=== PATIENT | female | born 1985 | race Caucasian/White ===

== ENCOUNTER 2017-05-21 10:08 | Emergency (ER) | payer MEDICAID ==
[~2017-05-21] VITALS: Ht 160 cm; Wt 87.0 kg
[2017-05-21 10:14] VITALS: Ht 160 cm; Wt 87.0 kg
[2017-05-21 11:18] LABS: BASOPHIL # 0.1 10^3/ul (0.0-0.1); BASOPHILS % 0.7 % (0.0-2.0); EOSINOPHILS # 0.3 10^3/ul (0.0-0.5); EOSINOPHILS % 2.6 % (0.0-7.0); HEMATOCRIT 38.9 % (37.0-47.0); HEMOGLOBIN 12.8 g/dl (12.0-16.0); LYMPHOCYTES # 3.1 10^3/ul (0.8-2.9); LYMPHOCYTES % 32.3 % (15.0-51.0); MEAN CORPUSCULAR HEMOGLOBIN 27.1 pg (29.0-33.0); MEAN CORPUSCULAR HGB CONC 32.9 g/dl (32.0-37.0); MEAN CORPUSCULAR VOLUME 82.4 fl (82.0-101.0); MEAN PLATELET VOLUME 11.4 fl (7.4-10.4); MONOCYTE # 0.5 10^3/ul (0.3-0.9); MONOCYTES % 5.2 % (0.0-11.0); NEUTROPHIL # 5.6 10^3/ul (1.6-7.5); NEUTROPHILS % 58.4 % (39.0-77.0); PLATELET COUNT 279 10^3/UL (140-415); RED BLOOD COUNT 4.72 10^6/ul (4.20-5.40); RED CELL DISTRIBUTION WIDTH 14.7 % (11.5-14.5); WHITE BLOOD COUNT 9.6 10^3/ul (4.8-10.8)
[2017-05-21 11:25] LABS: ADD UMIC NO; UR ASCORBIC ACID NEGATIVE (NEGATIVE); UR BILIRUBIN (Dip) NEGATIVE (NEGATIVE); UR BLOOD (Dip) NEGATIVE (NEGATIVE); UR CLARITY CLEAR (CLEAR); UR COLOR COLORLESS (YELLOW); UR GLUCOSE (Dip) NEGATIVE (NEGATIVE); UR KETONES (Dip) NEGATIVE (NEGATIVE); UR LEUKOCYTE ESTERASE (Dip) NEGATIVE Leu/ul (NEGATIVE); UR NITRITE (Dip) NEGATIVE (NEGATIVE); UR SPECIFIC GRAVITY (Dip) 1.002 (1.003-1.030); UR TOTAL PROTEIN (Dip) NEGATIVE (NEGATIVE); UR UROBILINOGEN (Dip) NEGATIVE (NEGATIVE)
[2017-05-21 11:42] LABS: ALBUMIN/GLOBULIN RATIO 1.17
[2017-05-21 11:47] LABS: ALBUMIN 4.6 g/dl (3.3-4.9); BILIRUBIN,INDIRECT 0.4 mg/dl (0-1.1); BILIRUBIN,TOTAL 0.4 mg/dl (0.2-1.3); CALCIUM 9.3 mg/dl (8.4-10.2); CREATININE 0.65 mg/dl (0.44-1.00); TOTAL PROTEIN 8.5 g/dl (6.1-8.1)
--- NOTE | 2017-05-21 12:03 | RADRPT ---
PROCEDURE: US Pelvis CLINICAL INDICATION: Pelvic pain. TECHNIQUE: Transabdominal and transvaginal sonographic evaluation of the pelvis was performed. COMPARISON: None. FINDINGS: Myometrium is homogeneous in echotexture without fibroids. Endometrium is normal in thickness without a focal abnormality. Normal flow to both ovaries. No adnexal mass. No free pelvic fluid. MEASUREMENTS: Uterus: 7.2 x 3.7 x 5.0 cm, anteverted. Endometrium: 0.3 cm. Right ovary size: 2.9 x 2.0 x 1.8 cm Left ovary size: 3.1 x 2.0 x 2.3 cm IMPRESSION: 1. Unremarkable ultrasound of the pelvis. RPTAT: EE .Alejandro Tilley MD, MD Date Time Electronically viewed and signed by .Alejandro Tilley MD, on 05/21/2017 12:08 .C/
[2017-05-21] MEDS: HYDROCODONE/APAP (5/325) TAB PO ONE ×2 (12:23→12:24)
[2017-05-21] MEDS ORDERED: IBUPROFEN 600 MG TAB PO ONE (12:30)
--- NOTE | 2017-05-21 12:57 | RADRPT ---
PROCEDURE: CT Abdomen and Pelvis without contrast. CLINICAL INDICATION: Pelvic pain for 3 weeks. Hematuria 6 days ago. Nausea. TECHNIQUE: CT scan of the abdomen and pelvis without contrast was performed on a multidetector hig h-resolution CT scanner. The patient was scanned without intravenous contrast. Coronal and sagittal reformatted images were obtained from the axial source images. Images were reviewed on a high-resol [employer] PACS workstation. One or more of the following dose reduction techniques were used: Automated exposure control, adjustment of the mA and/or kV according to patient size, use of iterative recon struction technique. The total exam CTDI equals 15.91 mGy and the total exam DLP equals 951.44 mGy- cm. COMPARISON: None. FINDINGS: CT abdomen: The lung bases are clear. The heart size is normal, without pericardial thickening or effusion. The liver is prominent measuring 18 cm but demonstrates normal density without focal mass or intrahe patic biliary dilatation. The spleen is normal in size and homogeneous in density. The stomach is grossly unremarkable. The pancreas as visualized is normal. The gallbladder is surgically absent. The biliary tree is unremarkable and there is no evidence for biliary dilatation. The adrenal glan ds are symmetric and normal. The kidneys are symmetrically unremarkable as well. No renal calculus or obstructive uropathy or mass lesion is seen. The aorta is of normal caliber. There is no retroperitoneal lymphadenopathy. The davide hepatis reg ion is clear. The small bowel and mesentery, as visualized, are unremarkable. CT pelvis: There is a 3.7 x 1.4 x 3.5 cm fat-containing left paramidline anterior ventral hernia in the upper p aliya with a fascial defect measuring 2.0 x 2.6 cm. There is no evidence of associated strangulation or bowel involvement. The small bowel loops situated within the pelvis are unremarkable. The pelvic organs are normal. T he pelvic sidewalls and inguinal regions are clear. The sigmoid colon and rectum are unremarkable. The appendix is not seen. No mass, lymphadenopathy, or free fluid is seen. No acute inflammation is seen. The surrounding osseous structures are unremarkable. No osteolytic or osteoblastic lesion is detec audie. IMPRESSION: Fat containing left paramidline anterior ventral hernia in the upper pelvis. No evidence of strangu lation or associated bowel involvement. Otherwise, no abdominal or pelvic acute inflammatory proces s, mass, or lymphadenopathy. RPTAT: JJ .Paulo Pollack MD, MD Date Time Electronically viewed and signed by .Paulo Pollack MD, MD on 05/21/2017 12:56 .A/
[2017-05-21] MEDS ORDERED: TRAM50TA2 PO (13:35)
[2017-05-21] MEDS ORDERED: IBUP-1542 PO (13:36)
--- NOTE | 2017-05-21 13:43 | ERD ---
ER Documentation Chief Complaint Date/Time DATE: 05/21/17 TIME: 13:39 Chief Complaint 9/10 pelvic pain x 3 weeks HPI This is a 31-year-old female presents to the ER with pelvic pain for the last 3 weeks. Patient states that she took ibuprofen and that helps however on Thursday pain worsens. Patient states that she had some vaginal bleeding on Thursday and on Thursday however bleeding resolves. Patient states that pain is sharp and constant. Pain is greater on the right than the left. Pain is located all throughout her pelvis. She admits to nonbilious nonbloody vomiting and she also has nausea. She denies any diarrhea she denies any fevers or chills. She denies any urinary frequency or dysuria. Her last normal menstrual period was on March 25, 2017. Patient denies any vaginal discharge. ROS 12 point review of systems was done, all negative except per HPI. Medications Home Meds Active Scripts Ibuprofen* (Motrin*) 600 Mg Tab, 600 MG PO Q6, #30 TAB Prov:JANAK HERNANDEZ 05/21/17 Tramadol HCl (Tramadol HCl) 50 Mg Tablet, 50 MG PO Q4 Y for PAIN, #20 TAB Prov:JANAK HERNANDEZ 05/21/17 Allergies Allergies: Coded Allergies: acetaminophen (Verified Allergy, Unknown, RASHES, 05/21/17) PMhx/Soc Medical and Surgical Hx: pt denies Medical Hx History of Surgery: Yes (APPENDECTOMY, CHOLECYSTECTOMY) Anesthesia Reaction: No Hx Neurological Disorder: No Hx Respiratory Disorders: No Hx Cardiac Disorders: No Hx Psychiatric Problems: No Hx Miscellaneous Medical Probl: No Hx Alcohol Use: No Hx Substance Use: No Hx Tobacco Use: No Smoking Status: Never smoker Physical Exam Vitals Vital Signs Date Time Temp Pulse Resp B/P Pulse Ox O2 Delivery O2 Flow Rate FiO2 05/21/17 10:14 98.7 77 18 135/93 98 Physical Exam GENERAL: The patient is well developed and appropriate for usual state of health , in no apparent distress. HEENT: Atraumatic. CHEST: Clear to auscultation bilaterally. There are no rales, wheezes or rhonchi. HEART: Regular rate and rhythm. No murmurs, clicks, rubs or gallops. ABDOMEN: Soft, nontender and nondistended. Good bowel sounds. No rebound or guarding. No gross peritonitis. No gross organomegaly or masses. No Francisco sign or McBurney point tenderness. + pelvic tenderness BACK: No midline or flank tenderness. NEURO: Alert and oriented. SKIN: There is no apparent rash or petechia. The skin is warm and dry. Result Diagram: 05/21/17 1055 05/21/17 1055 Results 24 hrs Laboratory Tests Test 05/21/17 10:30 05/21/17 10:55 Urine Color COLORLESS Urine Clarity CLEAR Urine pH 6.0 Urine Specific [place] 1.002 Urine Ketones NEGATIVEmg/dL Urine Nitrite NEGATIVEmg/dL Urine Bilirubin NEGATIVEmg/dL Urine Urobilinogen NEGATIVEmg/dL Urine Leukocyte Esterase NEGATIVELeu/ul Urine Hemoglobin NEGATIVEmg/dL Urine Glucose NEGATIVEmg/dL Urine Total Protein NEGATIVEmg/dl White Blood Count 9.610^3/ul Red Blood Count 4.7210^6/ul Hemoglobin 12.8g/dl Hematocrit 38.9% Mean Corpuscular Volume 82.4fl Mean Corpuscular Hemoglobin 27.1pg Mean Corpuscular Hemoglobin Concent 32.9g/dl Red Cell Distribution Width 14.7% Platelet Count 49608^3/UL Mean Platelet Volume 11.4fl Neutrophils % 58.4% Lymphocytes % 32.3% Monocytes % 5.2% Eosinophils % 2.6% Basophils % 0.7% Nucleated Red Blood Cells % 0.0/100WBC Neutrophils # 5.610^3/ul Lymphocytes # 3.110^3/ul Monocytes # 0.510^3/ul Eosinophils # 0.310^3/ul Basophils # 0.110^3/ul Nucleated Red Blood Cells # 0.010^3/ul Sodium Level 149mmol/L Potassium Level 4.0mmol/L Chloride Level 105mmol/L Carbon Dioxide Level 26mmol/L Anion Gap 22 Blood Urea Nitrogen 6mg/dl Creatinine 0.65mg/dl Glucose Level 97mg/dl Calcium Level 9.3mg/dl Total Bilirubin 0.4mg/dl Direct Bilirubin 0.00mg/dl Indirect Bilirubin 0.4mg/dl Aspartate Amino Transf (AST/SGOT) 70IU/L Alanine Aminotransferase (ALT/SGPT) 113IU/L Alkaline Phosphatase 90IU/L Total Protein 8.5g/dl Albumin 4.6g/dl Globulin 3.90g/dl Albumin/Globulin Ratio 1.17 Current Medications Medications (Trade) Dose Ordered Sig/Taylor Route PRN Reason Start Time Stop Time Status Last Admin Dose Admin Acetaminophen/ Hydrocodone Bitart ([place] (5/325)) 1 tab ONCE ONCE PO 05/21/17 12:30 05/21/17 12:30 DC Ibuprofen (Motrin) 600 mg ONCE ONCE PO 05/21/17 12:30 05/21/17 12:31 DC 05/21/17 12:27 Procedures/MDM Differential diagnosis includes but is not limited to appendicitis, hernia, UTI , constipation, ectopic , ovarian torsion, PID, Mittelschmerz, fibroid. This is a 31-year-old female presents to the ER with pelvic pain for the last 3 weeks. At this time there is evidence of a hernia which may be attributed to patient's pain. There is no evidence of acute abdominal emergency and patient is afebrile and well-appearing with no history of fevers or chills. Suspicion for ovarian torsion is low. Patient has denied any vaginal discharge, suspicion for pelvic inflammatory disease is low. There is no evidence of urinary tract infection, I doubt pyelonephritis. Patient is able to tolerate fluids by mouth, she stable for outpatient follow-up. She will be sent home with tramadol. Patient is to follow-up with her primary care doctor within 1-2 days return to ER sooner if symptoms worsen. My medical decision making was shared with the patient she understands and agrees with plan Departure Diagnosis: Primary Impression: Hernia Condition: Stable Patient Instructions: Hernia (Inguinal, Ventral, Umbilical) Additional Instructions: Llame al doctor MAANA y lisa marco a CHRISTINE PARA DENTRO DE 1-2 MATUTE.Dgale a la secretaria que nosotros le instruimos hacer esta christine.Avise o llame si fournier condicin se empeora antes de la christine. Regresa aqui si peor o no mejor. JANAK HERNANDEZ May 21, 2017 13:43
[2017-05-21 13:52] VITALS: BP 140/90; PULSE 64; RESP 18
== END 2017-05-21 13:53 | disposition home or self-care (01) ==
LOC: FTE 10:08
DX: K46.9 Unspecified abdominal hernia without obstruction or gangrene (principal)
CPT/HCPCS: 36415; 74176; 76830; 76856; 80053; 81003; 85025; Z7502; Z7610

== ENCOUNTER 2017-10-20 14:40 | Emergency (ER) | END 2017-10-20 16:06 | disposition left against medical advice (07) ==